=== PATIENT | female | born 1970 | race Caucasian/White ===

== ENCOUNTER 2016-12-18 16:13 | Emergency (ER) | payer OTHER ==
[~2016-12-18] VITALS: Ht 162.6 cm; Wt 84.0 kg
[2016-12-18 16:15] VITALS: Ht 162.6 cm; Wt 84.0 kg
--- NOTE | 2016-12-18 17:23 | ERD ---
ER Documentation Chief Complaint Date/Time DATE: 12/18/16 TIME: 17:12 Chief Complaint rash HPI 46-year-old female presents emergency department for generalized rash and hives started yesterday. Stated it was itchy. Denies any headache, dizziness, blurred vision, neck pain, throat pain, throat itchiness, throat tightness, difficulty swallowing, loss of appetite, shoulder pain, chest pain, chest tightness, difficulty breathing, abdominal pain, nausea , vomiting, changes in diet, changes in detergents/soap, urinary symptoms, recent exposure to any illness, recent long travel, recent travel, recent antibiotic use in the last 3 months, fever, chills. No known drug allergies. No past medical history. Surgery: Had a laparoscopic oophorectomy. Does not take any prescription medications at home. 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 Denies smoking, use alcohol, use of illegal drugs. ROS All systems reviewed and are negative except as per history of present illness. Medications Home Meds Active Scripts Loratadine* (Claritin*) 10 Mg Capsule, 10 MG PO DAILY for 10 Days, CAP Prov:PASILABAN,VALERIAR F 12/18/16 Prednisone* (Prednisone*) 20 Mg Tab, 40 MG PO DAILY for 4 Days, TAB Prov:PASILABAN,KLAR F 12/18/16 Diphenhydramine Hcl* (Benadryl*) 25 Mg Cap, 25 MG PO Q8 Y for ITCHING/RASH, #30 TAB Prov:PASILABAN,KLAR F 12/18/16 Famotidine* (Pepcid*) 20 Mg Tablet, 20 MG PO DAILY for 5 Days, TAB Prov:PASILABAN,KLAR F 12/18/16 Allergies Allergies: Coded Allergies: No Known Allergy (Unverified , 12/18/16) Physical Exam Vitals Vital Signs Date Time Temp Pulse Resp B/P Pulse Ox O2 Delivery O2 Flow Rate FiO2 12/18/16 16:15 98.0 99 18 125/70 98 Physical Exam Const: [] Head: Atraumatic Eyes: Normal Conjunctiva ENT: Normal External Ears, Nose and Mouth. Throat: Uvula is midline nondisplaced. Tonsils are +1 bilaterally without redness and without exudates. Tolerating secretions. Patent airway. Speaks full and clear sentences. Neck: Full range of motion..~ No meningismus. Resp: Clear to auscultation bilaterally. Respirations even and unlabored. Lung sounds are clear to auscultation. Cardio: Regular rate and rhythm, no murmurs Abd: Soft, non tender, non distended. Normal bowel sounds Skin: No petechiae or rashes. Mild hives to facial area. Hives and rashes to chest and back, bilateral upper extremities. Back: No midline or flank tenderness Ext: No cyanosis, or edema Neur: Awake and alert Psych: Normal Mood and Affect Results 24 hrs Current Medications Medications (Trade) Dose Ordered Sig/Cornell Route PRN Reason Start Time Stop Time Status Last Admin Dose Admin Methylprednisolone Sodium Succinate (Solu-Medrol) 125 mg ONCE ONCE IM 12/18/16 17:30 12/18/16 17:31 DC 12/18/16 17:24 Famotidine (Pepcid) 40 mg ONCE ONCE PO 12/18/16 17:30 12/18/16 17:31 DC 12/18/16 17:24 Diphenhydramine HCl (Benadryl) 25 mg ONCE ONCE PO 12/18/16 17:30 12/18/16 17:31 DC 12/18/16 17:24 Procedures/MDM 46-year-old female presents emergency department for generalized rash and hives started yesterday. Stated it was itchy. Denies any headache, dizziness, blurred vision, neck pain, throat pain, throat itchiness, throat tightness, difficulty swallowing, loss of appetite, shoulder pain, chest pain, chest tightness, difficulty breathing, abdominal pain, nausea , vomiting, changes in diet, changes in detergents/soap, urinary symptoms, recent exposure to any illness, recent long travel, recent travel, recent antibiotic use in the last 3 months, fever, chills. No known drug allergies. No past medical history. Surgery: Had a laparoscopic oophorectomy. Does not take any prescription medications at home. 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 Denies smoking, use alcohol, use of illegal drugs. Physical exam: Mild hives to facial area. Hives and rashes to chest and back, bilateral upper extremities. Respirations even and unlabored. Lung sounds are clear to auscultation. Throat: Uvula is midline nondisplaced. Tonsils are +1 bilaterally without redness and without exudates. Tolerating secretions. Patent airway. Speaks full and clear sentences. Disease process was explained to the patient. She verbalized understanding and agreed with the treatment and plan of care. Treatment: Solu-Medrol IM. Pepcid p.o. Benadryl p.o. Reevaluation: Hives and rashes to face/chest/back/bilateral upper extremities has decreased tremendously. Throat: Uvula is in midline and not displaced. Tonsils are +1 bilaterally without redness and without exudates. Tolerating secretions. Patent airway. Speaks full and clear sentences. Respirations even and unlabored. Lung sounds are clear to auscultation. There is no right upper/right lower/epigastric/left upper/left lower abdominal tenderness and light and deep palpation. No peritoneal signs. No CVA tenderness. No neurological deficit. No neurovascular deficits. Differential diagnosis: Angioedema versus anaphylaxis versus allergic reaction versus scabies versus chickenpox versus viral rash Final diagnosis: Allergic reaction Prescription: Prednisone. Pepcid. Claritin. Benadryl. Follow-up with primary care physician the next 24-48 hours. Come back to emergency department for any new symptoms or any worsening of symptoms. PCP to refer patient to a millwright apprentice if symptoms persist. All questions and concerns were answered. Patient verbalized understanding and agreed with the plan of care. Hemodynamically stable on discharge. Departure Diagnosis: Primary Impression: Allergic reaction Condition: Stable Additional Instructions: Follow-up with primary care physician the next 24-48 hours. Come back to emergency department for any new symptoms or any worsening of symptoms. PCP to refer patient to a millwright apprentice if symptoms persist. All questions and concerns were answered. Patient verbalized understanding and agreed with the plan of care. MAURICE RANGEL Dec 18, 2016 17:23 MAURICE RANGEL Dec 18, 2016 17:23
[2016-12-18] MEDS ORDERED: FAMO-96 PO (17:25)
[2016-12-18] MEDS ORDERED: PRED20TA PO (17:26)
[2016-12-18] MEDS ORDERED: BEN25 PO (17:26)
[2016-12-18] MEDS ORDERED: LORA10CA PO (17:26)
[2016-12-18] MEDS ORDERED: METHYLPREDNISOLONE 125 MG INJ IM ONE (17:30)
[2016-12-18] MEDS ORDERED: DIPHENHYDRAMINE 25 MG CAP PO ONE (17:30)
[2016-12-18] MEDS ORDERED: FAMOTIDINE 20 MG TAB PO ONE (17:30)
== END 2016-12-18 17:30 | disposition home or self-care (01) ==
LOC: FTE 16:13
DX: R21 Rash and other nonspecific skin eruption (principal)
CPT/HCPCS: 96372; J2930; Z7502; Z7610